=== PATIENT | female | born 1960 | race Caucasian/White ===

== ENCOUNTER 2021-02-21 18:01 | Inpatient (IN) ==
[2021-02-21] MEDS ORDERED: SODIUM CHLORIDE 0.9% 1,000 ML IV STA (19:26)
[2021-02-21] MEDS ORDERED: ONDANSETRON 4 MG/2 ML VIAL IV STA (19:26)
[2021-02-21] MEDS ORDERED: PANTOPRAZOLE 40 MG VIAL IV STA (19:26)
[2021-02-21] MEDS: PANTOPRAZOLE INJ 200 MG in SODIUM CHLORIDE 0.9% 250 ML IV SCH (20:19)
[2021-02-21 20:29] LABS: Basophils % 0.3 % (0.0-0.8); Eosinophils % 0.7 % (0.00-10.9); Hematocrit 31.9 VOL% (35.7-47.0); Hemoglobin 10.9 GM/DL (12.0-16.0); Immature Granulocytes % 0.3 %; Immature Granulocytes Absolute 0.02 #; Lymphocytes # 0.6 10*3/uL (1.4-4.0); Mean Corpuscular HGB Conc 34.2 GM/DL (32-36); Mean Corpuscular Volume 88.1 FL (87-102); Mean Platelet Volume 12.6 FL (9.6-12.0); Monocytes % 10.8 % (1.7-12.7); Neutrophils % 77.9 % (38.7-73.9); Platelet Count 107 T/CUMM (130-400); Red Blood Count 3.62 MC/CUMM (3.8-5.5); Red Cell Distribution Width 16.9 % (9.3-17.3); White Blood Count 6.1 T/CUMM (4-12)
[2021-02-21 20:41] LABS: INR 1.1; PT Patient Result 12.4 SECS (10.5-12.0); Partial Thromboplastin Time 21.4 SECS (23.9-33.8)
[2021-02-21 20:54] LABS: Albumin 2.6 G/DL (3.4-5.0); Bilirubin,Total 1.5 MG/DL (0.20-1.00); Calcium 7.6 MG/DL (8.5-10.1); Potassium 4.1 MMOL/L (3.5-5.1); Total Protein 5.8 G/DL (6.4-8.2)
[2021-02-21] MEDS ORDERED: ONDANSETRON 4 MG/2 ML VIAL IV PRN (22:29)
[2021-02-21] MEDS ORDERED: ALBUTEROL 2.5 MG/3 ML NEB RESP TX PRN (22:29)
[2021-02-21] MEDS ORDERED: DEXTROSE 50% 25 GM/50 ML VIAL IV PRN (22:37)
[2021-02-21] MEDS ORDERED: GLUCAGON 1 MG VIAL IM PRN (22:37)
[2021-02-21] MEDS ORDERED: PANTOPRAZOLE INJ 200 MG in SODIUM CHLORIDE 0.9% 250 ML IV SCH (23:30)
[2021-02-22 00:04] LABS: Hematocrit 26.1 VOL% (35.7-47.0); Hemoglobin 8.7 GM/DL (12.0-16.0)
[2021-02-22] MEDS: OCTREOTIDE 500 MCG in SODIUM CHLORIDE 0.9% 100 ML IV SCH ×2 (00:33→10:09)
[2021-02-22] MEDS: SODIUM CHLORIDE 0.9% 1,000 ML IV SCH ×2 (00:45→06:27)
[2021-02-22 05:09] LABS: Calcium 6.8 MG/DL (8.5-10.1); Osmolality,Calculated 295.6 MOS/KG (273-304); Potassium 3.6 MMOL/L (3.5-5.1); Thyroid Stimulating Hormone 0.042 uIU/ml (0.358-3.74)
[2021-02-22 05:15] LABS: Basophils % 0.2 % (0.0-0.8); Eosinophils # 0.1 10*3/uL (0.0-0.87); Eosinophils % 3.3 % (0.00-10.9); Immature Granulocytes % 0.5 %; Immature Granulocytes Absolute 0.02 #; Lymphocytes # 0.6 10*3/uL (1.4-4.0); Lymphocytes % 13.6 % (21.3-54.2); Mean Corpuscular HGB Conc 33.2 GM/DL (32-36); Mean Corpuscular Volume 89.4 FL (87-102); Mean Platelet Volume 12.2 FL (9.6-12.0); Monocytes % 10.4 % (1.7-12.7); Platelet Count 74 T/CUMM (130-400); Red Blood Count 2.73 MC/CUMM (3.8-5.5); Red Cell Distribution Width 17.5 % (9.3-17.3); White Blood Count 4.3 T/CUMM (4-12)
[2021-02-22 05:16] LABS: Hematocrit 24.4 VOL% (35.7-47.0); Hemoglobin 8.1 GM/DL (12.0-16.0)
[2021-02-22] MEDS: INSULIN LISPRO 100 UNIT/ML SUBCUT SCH ×3 (06:00→15:32)
[2021-02-22] MEDS ORDERED: LEVOTHYROXINE 125 MCG TABLET PO SCH (06:30)
[2021-02-22 07:20] LABS: Eosinophils 5 % (0-10); Hypochromasia 2+; Lymphocytes 16 % (20-55); Microcytosis Slight; Nucleated Red Blood Cells 1 (0-5); Platelet Estimate Decreased; Segmented Neutrophils 73 % (50-85)
[2021-02-22 07:21] LABS: Total Cells Counted 100
[2021-02-22] MEDS: SPIRONOLACTONE 50 MG TABLET PO SCH (09:25)
[2021-02-22] MEDS: predniSONE 5 MG TABLET PO SCH (09:25)
[2021-02-22] MEDS: azaTHIOprine 50 MG TABLET PO SCH (09:25)
[2021-02-22 11:26] LABS: Hematocrit 24.6 VOL% (35.7-47.0); Hemoglobin 8.3 GM/DL (12.0-16.0)
[2021-02-22] MEDS: SODIUM CHLOR 0.45% KCL 20 MEQ 20 MEQ/1,000 ML BAG IV SCH (14:25)
[2021-02-22] MEDS: LACTULOSE 20 GM/30 ML UDCUP PO SCH ×2 (16:54→22:00)
[2021-02-22 17:41] LABS: Hematocrit 26.6 VOL% (35.7-47.0); Hemoglobin 8.7 GM/DL (12.0-16.0)
[2021-02-22 22:42] LABS: Hematocrit 25.8 VOL% (35.7-47.0); Hemoglobin 8.4 GM/DL (12.0-16.0)
[2021-02-23] MEDS: INSULIN LISPRO 100 UNIT/ML SUBCUT SCH ×5 (00:32→17:54)
[2021-02-23 05:31] LABS: Basophils % 0.5 % (0.0-0.8); Eosinophils # 0.2 10*3/uL (0.0-0.87); Eosinophils % 5.9 % (0.00-10.9); Hematocrit 26.3 VOL% (35.7-47.0); Hemoglobin 8.5 GM/DL (12.0-16.0); Immature Granulocytes % 0.5 %; Immature Granulocytes Absolute 0.02 #; Lymphocytes # 0.7 10*3/uL (1.4-4.0); Lymphocytes % 17.3 % (21.3-54.2); Mean Corpuscular HGB Conc 32.3 GM/DL (32-36); Mean Corpuscular Volume 92.3 FL (87-102); Mean Platelet Volume 11.9 FL (9.6-12.0); Monocytes % 9.5 % (1.7-12.7); Neutrophils % 66.3 % (38.7-73.9); Red Blood Count 2.85 MC/CUMM (3.8-5.5); Red Cell Distribution Width 17.5 % (9.3-17.3); White Blood Count 3.9 T/CUMM (4-12)
[2021-02-23] MEDS: OCTREOTIDE 500 MCG in SODIUM CHLORIDE 0.9% 100 ML IV SCH ×2 (05:45→17:46)
[2021-02-23] MEDS: SODIUM CHLOR 0.45% KCL 20 MEQ 20 MEQ/1,000 ML BAG IV SCH ×2 (05:52→21:19)
[2021-02-23 05:58] LABS: Calcium 7.7 MG/DL (8.5-10.1); Free T4 (Free Thyroxine) 1.35 NG/DL (0.76-1.46); Osmolality,Calculated 286.8 MOS/KG (273-304); Potassium 3.4 MMOL/L (3.5-5.1)
[2021-02-23 06:00] LABS: Platelet Count 87 T/CUMM (130-400)
[2021-02-23] MEDS: LEVOTHYROXINE 150 MCG TABLET PO SCH (07:12)
[2021-02-23 07:15] LABS: Hypochromasia 1+; Ovalocytes 1+; Platelet Estimate Decreased; Polychromasia Few
[2021-02-23] MEDS: predniSONE 5 MG TABLET PO SCH (11:08)
[2021-02-23] MEDS: SPIRONOLACTONE 50 MG TABLET PO SCH (11:08)
[2021-02-23] MEDS: LACTULOSE 20 GM/30 ML UDCUP PO SCH ×2 (11:08→21:12)
[2021-02-23] MEDS: azaTHIOprine 50 MG TABLET PO SCH (11:08)
[2021-02-23] MEDS: PANTOPRAZOLE INJ 200 MG in SODIUM CHLORIDE 0.9% 250 ML IV SCH ×2 (17:36→17:47)
[2021-02-24] MEDS: INSULIN LISPRO 100 UNIT/ML SUBCUT SCH ×5 (01:05→23:53)
[2021-02-24] MEDS: OCTREOTIDE 500 MCG in SODIUM CHLORIDE 0.9% 100 ML IV SCH ×2 (03:32→12:35)
[2021-02-24 05:40] LABS: Albumin 2.4 G/DL (3.4-5.0); Bilirubin,Total 1.1 MG/DL (0.20-1.00); Calcium 7.6 MG/DL (8.5-10.1); Osmolality,Calculated 283.1 MOS/KG (273-304); Potassium 3.2 MMOL/L (3.5-5.1); Total Protein 5.7 G/DL (6.4-8.2)
[2021-02-24] MEDS: LEVOTHYROXINE 150 MCG TABLET PO SCH (06:11)
[2021-02-24] MEDS: LACTATED RINGERS 1,000 ML IV SCH (07:30)
[2021-02-24] MEDS ORDERED: LIDOCAINE 2% 5 ML VIAL ONE (07:54)
[2021-02-24] MEDS ORDERED: propofoL 200 MG/20 ML VIAL IV ONE (07:54)
[2021-02-24 08:08] LABS: Basophils % 0.7 % (0.0-0.8); Eosinophils # 0.2 10*3/uL (0.0-0.87); Eosinophils % 5.7 % (0.00-10.9); Hematocrit 25.3 VOL% (35.7-47.0); Hemoglobin 8.1 GM/DL (12.0-16.0); Immature Granulocytes % 0.4 %; Immature Granulocytes Absolute 0.01 #; Lymphocytes # 0.6 10*3/uL (1.4-4.0); Lymphocytes % 20.1 % (21.3-54.2); Mean Corpuscular Volume 93.7 FL (87-102); Mean Platelet Volume 12.3 FL (9.6-12.0); Neutrophils % 63.1 % (38.7-73.9); Platelet Count 87 T/CUMM (130-400); Red Cell Distribution Width 17.5 % (9.3-17.3); White Blood Count 2.8 T/CUMM (4-12)
[2021-02-24] MEDS ORDERED: PHENYLEPHRINE 1 MG/10 ML SYRINGE IV ONE (08:11)
[2021-02-24] MEDS ORDERED: GLYCOPYRROLATE 0.4 MG/2 ML VIAL ONE (08:14)
[2021-02-24 08:29] LABS: Eosinophils 6 % (0-10); Lymphocytes 20 % (20-55); Platelet Estimate Decreased; Segmented Neutrophils 68 % (50-85); Total Cells Counted 100
[2021-02-24 08:30] LABS: Hypochromasia 1+; Microcytosis 1+
[2021-02-24] MEDS: LACTULOSE 20 GM/30 ML UDCUP PO SCH ×2 (09:58→21:40)
[2021-02-24] MEDS: azaTHIOprine 50 MG TABLET PO SCH (09:59)
[2021-02-24] MEDS: predniSONE 5 MG TABLET PO SCH (09:59)
[2021-02-24] MEDS: SODIUM CHLOR 0.45% KCL 20 MEQ 20 MEQ/1,000 ML BAG IV SCH ×3 (09:59→23:54)
[2021-02-24] MEDS: SPIRONOLACTONE 50 MG TABLET PO SCH (09:59)
[2021-02-24] MEDS: HYDROmorphone 2 MG/1 ML VIAL IV PRN (10:00)
[2021-02-25] MEDS: HYDROmorphone 2 MG/1 ML VIAL IV PRN (03:46)
[2021-02-25] MEDS: SODIUM CHLOR 0.45% KCL 20 MEQ 20 MEQ/1,000 ML BAG IV SCH (05:11)
[2021-02-25 05:15] LABS: Basophils % 0.7 % (0.0-0.8); Eosinophils # 0.2 10*3/uL (0.0-0.87); Eosinophils % 5.4 % (0.00-10.9); Hematocrit 26.1 VOL% (35.7-47.0); Hemoglobin 8.5 GM/DL (12.0-16.0); Immature Granulocytes % 0.4 %; Immature Granulocytes Absolute 0.01 #; Lymphocytes # 0.4 10*3/uL (1.4-4.0); Lymphocytes % 14.4 % (21.3-54.2); Mean Corpuscular HGB Conc 32.6 GM/DL (32-36); Mean Corpuscular Volume 92.6 FL (87-102); Monocytes % 10.4 % (1.7-12.7); Neutrophils % 68.7 % (38.7-73.9); Platelet Count 95 T/CUMM (130-400); Red Blood Count 2.82 MC/CUMM (3.8-5.5); Red Cell Distribution Width 17.3 % (9.3-17.3); White Blood Count 2.8 T/CUMM (4-12)
[2021-02-25 05:18] LABS: Calcium 7.8 MG/DL (8.5-10.1); Osmolality,Calculated 276.4 MOS/KG (273-304); Potassium 3.5 MMOL/L (3.5-5.1)
[2021-02-25 05:45] LABS: Eosinophils 2 % (0-10); Lymphocytes 12 % (20-55); Platelet Estimate Decreased; Segmented Neutrophils 79 % (50-85)
[2021-02-25 05:46] LABS: Hypochromasia Slight; Total Cells Counted 100
[2021-02-25] MEDS: INSULIN LISPRO 100 UNIT/ML SUBCUT SCH ×2 (06:01→11:43)
[2021-02-25] MEDS ORDERED: LEVOTHYROXINE 100 MCG TABLET PO SCH (06:30)
[2021-02-25] MEDS: LACTATED RINGERS 1,000 ML IV SCH (07:36)
[2021-02-25] MEDS ORDERED: PANTOPRAZOLE 40 MG VIAL IV SCH (09:00)
[2021-02-25] MEDS: predniSONE 5 MG TABLET PO SCH (09:15)
[2021-02-25] MEDS: SPIRONOLACTONE 50 MG TABLET PO SCH (09:15)
[2021-02-25] MEDS: azaTHIOprine 50 MG TABLET PO SCH (09:15)
[2021-02-25] MEDS: LACTULOSE 20 GM/30 ML UDCUP PO SCH (09:15)
[2021-02-25 12:09] VITALS: BP 121/49
[2021-02-25] MEDS ORDERED: MAGNESIUM SULF RIDER 2 GM/50 ML PREMIX IV ONE (12:30)
== END 2021-02-25 14:48 | disposition home or self-care (01) | DRG 441 ==
LOC: N.ED 18:01 → SUATTDRO 21:33 → N.EDINP 21:33 → N.3E 02-22 12:03
PROVIDERS: ADMIT Internal Medicine; ATTEND Hospitalist
PROC: EGDWEBL (ICD-10-PCS; 2021-02-24 08:35)